=== PATIENT | female | born 1925 | race Caucasian/White ===

== ENCOUNTER → 2016-04-30 | Outpatient (CLI) | payer MEDICARE ==
[2016-04-30 08:02] LABS: BASOPHILS % (AUTO) 1 % (0-2); EOSINOPHILS # (AUTO) 0.2 10^3uL; EOSINOPHILS % (AUTO) 3 % (0-4); LYMPHOCYTES # (AUTO) 1.4 X10^3; MEAN CORPUSCULAR HEMOGLOBIN 30.4 PG (26.0-34.0); MEAN CORPUSCULAR HGB CONC 34.4 g/dL (31.0-37.0); MEAN CORPUSCULAR VOLUME 88 FL (80-100); MEAN PLATELET VOLUME 9.7 FL (6.0-9.5); MONOCYTES # (AUTO) 0.6 X10^3; MONOCYTES % (AUTO) 8 % (3-11); NEUTROPHILS # (AUTO) 4.9 X10^3; NEUTROPHILS % (AUTO) 68 % (51-67); PLATELET COUNT 241 10^3uL (150-450); WHITE BLOOD COUNT 7.13 10^3uL (4.0-11.0)
[2016-04-30 08:16] LABS: ALBUMIN 4.3 g/dL (3.4-5.0); ANION GAP 15.1 MEQ/L (3-15); CALCULATED IONIZED CALCIUM 4.3 mg/dL (3.8-4.6); TOTAL PROTEIN 7.7 g/dL (6.4-8.5)
== END ==
LOC: LAB 07:51
PROVIDERS: ATTEND Internal Medicine Hematology & Oncology
DX: C50.112 Malignant neoplasm of central portion of left female breast (principal); Z78.0 Asymptomatic menopausal state
CPT/HCPCS: 36415; 80053; 85025; 86300

== ENCOUNTER → 2016-05-01 | Outpatient (CLI) | payer MEDICARE | LOC: RAD 10:46 | PROVIDERS: ATTEND Internal Medicine Hematology & Oncology | DX: C50.112 Malignant neoplasm of central portion of left female breast (principal); Z78.0 Asymptomatic menopausal state | CPT/HCPCS: 77080 ==

== ENCOUNTER 2016-05-24 17:24 | Emergency (ER) | payer MEDICARE ==
[~2016-05-24] VITALS: Ht 157.5 cm; Wt 56.0 kg
[2016-05-24 17:29] VITALS: BP 164/67
--- NOTE | 2016-05-24 18:03 | NUR ---
WHEN ROUNDING ON PT, THIS RN FINDS PT STATING SHE CONT TO BE AFRAID TO MOVE HER HEAD/NECK FOR FEAR OF THE PAIN. STATES NO PAIN NOW WHEN SHE HOLDS VERY STILL. HUSB AT BEDSIDE. CL
--- NOTE | 2016-05-24 18:49 | NUR ---
WHEN GOING INTO PT ROOM, THIS RN FINDS PT SITTING UPRIGHT IN BED WITH HUSB AT BEDSIDE & STATES WHILE SMILING SHE HAS NO FURTHER PAIN UNLESS SHE TURNS HER HEAD AT THIS TIME. PT WONDERS OUT LOUD IF SHE COULD JUST GO HOME NOW BUT DAUGHTER & HUSB ARE WORRIED OF THE PAIN COMING BACK. CL
[2016-05-24] MEDS ORDERED: CYCLOBENZAPRINE 10 MG (FLEXERIL) TAB PO ONE (19:40)
== END 2016-05-24 19:58 | disposition home or self-care (01) ==
LOC: ED 17:25
DX: M54.2 Cervicalgia (principal); M62.838 Other muscle spasm
CPT/HCPCS: 99282; A9270; 99283

== ENCOUNTER 2016-05-25 19:14 | Inpatient (IN) | payer MEDICARE ==
[~2016-05-25] VITALS: Ht 157.5 cm; Wt 55.5 kg
[2016-05-25] MEDS ORDERED: PROMETHAZINE 25 MG/ML (PHENERGAN) 1 ML VIAL IM ONE (19:50)
[2016-05-25] MEDS ORDERED: HYDROmorphone 1 MG/ML (DILAUDID) SYRINGE IM ONE (19:50)
--- NOTE | 2016-05-25 20:20 | NUR ---
Son and spouse assisted in positioning pt onto her Lt side so that IM injection could be given into pt's Rt. DG site. Pt tolerated well.
[2016-05-25] MEDS ORDERED: morphine INJ 10 MG/ML 1 ML VIAL IM SCH (20:45)
--- NOTE | 2016-05-25 21:21 | NUR ---
PLaced 02 on at 2L/NC, only bringing 02 to 89-90% d/t patient is a mouth breather so increased 02 to 4L/NC, 02 sats now 95%, Patient respirations are even and non-labored, patient only requiring 02 d/t medications for pain given.
--- NOTE | 2016-05-25 21:58 | NUR ---
Son assisted nurse to sit pt up in bed and then to dangling position at side of bed. Pt did not complain of pain but is very groggy and unable to follow instructions. When asked to turn head from side to side she justs shrugs but makes no attempt to turn head. Dr. Garcia in room during this attempt and speaks to family about possible overnight admission.
--- NOTE | 2016-05-25 22:01 | NUR ---
Patient care now assumed by Antelmo Acosta RN.
[2016-05-25] MEDS ORDERED: ONDANSETRON 2 MG/ML (Z0FRAN) 2 ML VIAL IV PRN (22:10)
[2016-05-25] MEDS ORDERED: KETOROLAC 15 MG/ML (TORADOL) 1 ML VIAL IV PRN (22:10)
[2016-05-25] MEDS ORDERED: oxyCODONE/ACETAMINOPHEN 5MG-325 MG (PERCOCET) TABLET PO PRN (22:15)
--- NOTE | 2016-05-25 22:20 | NUR ---
Pt arrives to 314 via cart from ED. Pt given much prompting to walk with staff assist x2 to weight chair and bed. Pt shuffles hesitantly. Pt unable to turn head to left or right. Does not attempt to bring chin to chest when asked. Resp even and non labored on RA currently. Will spot check o2 frequently d/t prior narcotic administration. See admission assessment for further details.
[2016-05-25 22:34] VITALS: BP 157/78
--- NOTE | 2016-05-25 22:35 | NUR ---
Pt o2 sat drops to 86% on RA. Placed on 2L oxygen per nc. O2 sat rises to 93%.
--- NOTE | 2016-05-25 22:40 | NUR ---
Dr Rosenberg assesses pt via remote monitoring.
--- NOTE | 2016-05-25 23:03 | NUR ---
20G SL initiated to RFA by this nurse x1 attempt. Pt tolerates well.
[2016-05-26 00:09] VITALS: BP 153/69
[2016-05-26 05:38] LABS: BASOPHILS % (AUTO) 0 % (0-2); EOSINOPHILS % (AUTO) 0 % (0-4); MEAN CORPUSCULAR HEMOGLOBIN 29.3 PG (26.0-34.0); MEAN CORPUSCULAR HGB CONC 33.6 g/dL (31.0-37.0); MEAN CORPUSCULAR VOLUME 87 FL (80-100); MEAN PLATELET VOLUME 9.9 FL (6.0-9.5); MONOCYTES % (AUTO) 9 % (3-11); NEUTROPHILS # (AUTO) 9.4 X10^3; NEUTROPHILS % (AUTO) 82 % (51-67); PLATELET COUNT 281 10^3uL (150-450); WHITE BLOOD COUNT 11.48 10^3uL (4.0-11.0)
[2016-05-26 06:05] LABS: ALBUMIN 3.3 g/dL (3.4-5.0); ANION GAP 13.1 MEQ/L (3-15); CALCULATED IONIZED CALCIUM 4.3 mg/dL (3.8-4.6); TOTAL PROTEIN 6.2 g/dL (6.4-8.5)
--- NOTE | 2016-05-26 06:12 | NUR ---
Pt rests in long intervals. PRN toradol provided x1 for neck pain; see MAR. Pt repositioned frequently. More alert this morning. Answers a few questions. SL intact. Cont on 2L oxygen per nc.
[2016-05-26 08:13] VITALS: BP 133/61
[2016-05-26] MEDS ORDERED: NS FLUSH 3 ML PRN IV (08:45)
[2016-05-26] MEDS ORDERED: NS FLUSH 10 ML PRN IV (08:45)
--- NOTE | 2016-05-26 08:45 | NUR ---
DC'd O2. Patient reports she normally does not wear O2 at home. Will recheck sat.
[2016-05-26] MEDS ORDERED: NS FLUSH 3 ML DAILY IV SCH (09:00)
--- NOTE | 2016-05-26 09:15 | NUR ---
O2 sat.= 92-93% on room air. No shortness of breath noted. Patient has been able to eat a normal breakfast without difficulty. She reports a "soreness" in her neck but states it is not bad enough to take any pain medication.
--- NOTE | 2016-05-26 10:40 | NUR ---
Gave the patient and her discharge instructions. Informed them no medication changes have been made at this time. Encouraged the patient to do gentle range of motion exercises at home to keep her muscles from getting so tight and to follow up with her PCP next week. Patient demonstrated verbal understanding.
--- NOTE | 2016-05-26 10:45 | NUR ---
Patient dismissed ambulatory accompanied by a [employer].
== END 2016-05-26 10:45 | disposition home or self-care (01) | DRG 552 ==
LOC: ED 19:15 → MED/SURG 22:07 → OBSVTOIN 22:07
PROVIDERS: ADMIT Hospitalist; ATTEND Hospitalist
DX: M47.892 Other spondylosis, cervical region (principal); R41.89 Other symptoms and signs involving cognitive functions and awareness; I10 Essential (primary) hypertension; T40.2X5A Adverse effect of other opioids, initial encounter; Y92.238 Other place in hospital as the place of occurrence of the external cause; Z79.899 Other long term (current) drug therapy; Z85.3 Personal history of malignant neoplasm of breast
CPT/HCPCS: 36415; 72052; 80053; 85025; 86140; 96372; 99282; 99284

== ENCOUNTER → 2016-05-28 | Outpatient (CLI) | payer MEDICARE ==
[2016-05-28 08:28] LABS: ALBUMIN 3.9 g/dL (3.4-5.0); ANION GAP 15.9 MEQ/L (3-15); CALCULATED IONIZED CALCIUM 4.5 mg/dL (3.8-4.6); TOTAL PROTEIN 7.1 g/dL (6.4-8.5)
== END ==
LOC: LAB 07:55
PROVIDERS: ATTEND Internal Medicine Hematology & Oncology
DX: C50.112 Malignant neoplasm of central portion of left female breast (principal)
CPT/HCPCS: 36415; 80053